=== PATIENT | female | born 1985 | race Caucasian/White ===

== ENCOUNTER 2016-09-22 15:45 | Observation (INO) ==
[2016-09-22] MEDS ORDERED: Nitroglycerin 0.4 MG TAB.SUBL SL ONE (15:57)
--- NOTE | 2016-09-22 16:01 | Emergency Department Note ---
Disposition Clinical Impression: Chest pain of uncertain etiology Disposition: Admitted As Inpatient Time of Disposition: 18:52 Chest Pain HPI - General Stated Complaint: CP Time Seen by Provider: 09/22/16 15:48 Vital Signs Reviewed: Yes Nursing Notes Reviewed: Yes - History of Present Illness HPI Narrative: Mrs. Hughes, a 31yo female, presents from home by POV with concerns of chest pain. Onset 3-4 days ago and intermittent. 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 Her symptoms were initially mild and flutter-like. Her symptomatically episodes are progressed and she now has chest tightness at the left lower sternal border radiation to her left neck and jaw worsened by light exertion at which time she has associated dyspnea. No nausea, diaphoresis, back pain, weakness, paresthesias. She is symptomatic at this time laying in bed. 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 Arnett at that time. Has been asymptomatic since delivery until her current symptoms. - Related Data Home Medications Medication Instructions Recorded Confirmed No Known Home Drugs 09/22/16 09/22/16 Allergies Allergy/AdvReac Type Severity Reaction Status Date / Time dextromethorphan Allergy Intermediate Hives Verified 09/22/16 16:05 [From Capmist DM] guaifenesin [From Capmist DM] Allergy Intermediate Hives Verified 09/22/16 16:05 pseudoephedrine Allergy Intermediate Hives Verified 09/22/16 16:05 [From Capmist DM] Amoxicillin Allergy Mild Hives Verified 09/22/16 16:05 vancomycin Allergy See Verified 09/22/16 16:05 Comments clindamycin AdvReac Mild Hives Verified 09/22/16 16:05 adhesive tape AdvReac Rash Verified 09/22/16 16:05 All systems ED: reviewed and negative except as stated. 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 HEENT: No facial asymmetry. Head is normocephalic and atraumatic. PERRLA. Trachea midline. Cardiovascular: Heart regular rate and rhythm without clicks, rubs, gallops, or murmurs. No JVD. PMI nondisplaced. No edema. Bilateral radial and posterior tibial pulses 2/4. No carotid bruit. Respiratory: Symmetric chest rise with good respiratory effort. Bilateral breath sounds are clear without wheezing, crackles, or rhonchi. Abdomen: Bowel sounds present normoactive x-4 quadrants. Abdomen is soft, nondistended, and nontender. No organomegaly noted. Musculoskeletal: Spontaneously moving all extremities. Neuro: Sensation to light touch intact. Psych: Patient's affect is appropriate for situation. Course Course Narrative: Patient's story is concerning for dysrhythmia versus ACS. EKG is concerning for left precordial leads showing slight ST depression; possible sub- endocardial ischemia. Anticipate admission for continued risk evaluation. Remainder of imaging and labs pending. Chemistry and hematology have returned unremarkable; specifically normal troponin and normal electrolytes. Chest x-ray unremarkable on my evaluation as well as radiology read. Chest pain resolved after single subungual nitroglycerin. She did have a headache at that time; this improved with Tylenol. She is asymptomatic on reassessment. Discussed this patient with the nurse practitioner the admitting hospitalist, Dr. Lira, she has no additional questions or concerns this point. She agrees for admission for continued workup and evaluation. I relayed this information to the patient and her mother as well as reevaluated her. She remains comfortable with no questions at this time. Chest X-Ray 09/22/16 15:57 IMPRESSION: No acute cardiopulmonary abnormality. D/ / Leonidas De Leon MD / Leonidas De Leon MD Interpreting Provider: Leonidas De Leon MD Vital Signs Temperature 98.4 F 09/22/16 15:50 Pulse Rate 92 09/22/16 15:50 Respiratory Rate 20 09/22/16 15:50 Blood Pressure 176/82 09/22/16 15:50 O2 Sat by Pulse Oximetry 98 09/22/16 15:50 Temperature 98.4 F 09/22/16 15:50 Pulse Rate 94 09/22/16 16:11 Respiratory Rate 18 09/22/16 17:41 Blood Pressure 126/85 09/22/16 17:41 O2 Sat by Pulse Oximetry 98 09/22/16 16:11 Oxygen Delivery Oxygen Delivery Room Air Chest Pain - Lab Data Result diagrams: 09/22/16 16:08 09/22/16 16:08 Lab Results 09/22/16 09/22/16 09/22/16 Range/Units 16:08 16:08 16:08 WBC 8.7 (4.3-11.1) K/mcL RBC 4.31 (3.82-4.97) M/mcL Hgb 12.9 (11.5-15.4) g/dL Hct 36.5 (35.3-44.9) % MCV 84.7 (83.0-100.0) fL MCH 29.9 (28.0-33.3) pg MCHC 35.3 (31.6-35.5) g/dL RDW 11.9 (11.5-14.5) % Plt Count 307 (140-400) K/mcL MPV 10.1 (9.4-12.4) fL Immature Gran % 0.3 (0-4) % Seg Neutrophils % 72.8 % Lymphocytes % 19.7 % Monocytes % 4.9 % Eosinophils % 1.6 % Basophils % 0.7 % Neutrophils # 6.3 (1.6-8.9) K/mcL Lymphocytes # 1.7 (0.6-4.6) K/mcL Monocytes # 0.4 (0.0-1.3) K/mcL Eosinophils # 0.1 (0.0-0.6) K/mcL Basophils # 0.1 (0.0-0.2) K/mcL PT 12.4 H (9.4-12.1) Seconds INR 1.1 APTT 29.9 (26.0-36.0) Seconds Sodium 140 (136-145) mEq/L Potassium 3.5 (3.5-4.5) mEq/L Chloride 110 H (98-109) mEq/L Carbon Dioxide 24 (19-29) mEq/L BUN 14 (7-20) mg/dL Creatinine 0.69 (0.57-1.11) mg/dL Est GFR ( Amer) > 60 (> 60) Est GFR (Non-Af Amer) > 60 (> 60) BUN/Creatinine Ratio 20 (6-26) Glucose 91 (70-99) mg/dL Calculated Osmolality 290 (280-300) Calcium 8.7 (8.6-10.8) mg/dL Troponin I (0-0.03) ng/mL 09/22/16 Range/Units 16:08 WBC (4.3-11.1) K/mcL RBC (3.82-4.97) M/mcL Hgb (11.5-15.4) g/dL Hct (35.3-44.9) % MCV (83.0-100.0) fL MCH (28.0-33.3) pg MCHC (31.6-35.5) g/dL RDW (11.5-14.5) % Plt Count (140-400) K/mcL MPV (9.4-12.4) fL Immature Gran % (0-4) % Seg Neutrophils % % Lymphocytes % % Monocytes % % Eosinophils % % Basophils % % Neutrophils # (1.6-8.9) K/mcL Lymphocytes # (0.6-4.6) K/mcL Monocytes # (0.0-1.3) K/mcL Eosinophils # (0.0-0.6) K/mcL Basophils # (0.0-0.2) K/mcL PT (9.4-12.1) Seconds INR APTT (26.0-36.0) Seconds Sodium (136-145) mEq/L Potassium (3.5-4.5) mEq/L Chloride (98-109) mEq/L Carbon Dioxide (19-29) mEq/L BUN (7-20) mg/dL Creatinine (0.57-1.11) mg/dL Est GFR ( Amer) (> 60) Est GFR (Non-Af Amer) (> 60) BUN/Creatinine Ratio (6-26) Glucose (70-99) mg/dL Calculated Osmolality (280-300) Calcium (8.6-10.8) mg/dL Troponin I 0.00 (0-0.03) ng/mL - EKG Data EKG attestation: Yes I reviewed and interpreted this EKG. EKG results narrative: EKG dated 09/22/16 at 15:52 interpreted as sinus rhythm with a rate of 78. Normal intervals VA 143, QRS 97, QT/QTc 387/421. Concerning for slight ST depression in V4 and V5. No previous EKG for comparison. Attestation Statement - Attestation Attestation: I examined this patient and my medical decision-making was reviewed with the VEGETABLE FARMING SUPERVISOR/PA/Advanced Practice Nurse/Resident Physician. I agree with the documented findings, disposition and treatment plan as described except to the extent set forth below. 3-4 days of palpitations, now with chest pain. ekg slightly abnormal. will need to admit for acs workup. stress test
[2016-09-22] MEDS ORDERED: Acetaminophen 325 MG TABLET PO ONE (16:09)
[2016-09-22 16:15] LABS: Basophils # 0.1 K/mcL (0.0-0.2); Basophils % 0.7 %; Eosinophils # 0.1 K/mcL (0.0-0.6); Eosinophils % 1.6 %; Hematocrit 36.5 % (35.3-44.9); Hemoglobin 12.9 g/dL (11.5-15.4); Immature Granulocytes % 0.3 % (0-4); Lymphocytes # 1.7 K/mcL (0.6-4.6); Lymphocytes % 19.7 %; Mean Corpuscular HGB Conc 35.3 g/dL (31.6-35.5); Mean Corpuscular Hemoglobin 29.9 pg (28.0-33.3); Mean Corpuscular Volume 84.7 fL (83.0-100.0); Mean Platelet Volume 10.1 fL (9.4-12.4); Monocytes # 0.4 K/mcL (0.0-1.3); Monocytes % 4.9 %; Neutrophils # 6.3 K/mcL (1.6-8.9); Platelet Count 307 K/mcL (140-400); Red Blood Count 4.31 M/mcL (3.82-4.97); Red Cell Distribution Width 11.9 % (11.5-14.5); Segmented Neutrophils % 72.8 %
[2016-09-22 16:27] LABS: INR 1.1; Prothrombin Time 12.4 Seconds (9.4-12.1)
[2016-09-22 16:29] LABS: BUN/Creatinine Ratio 20 (6-26); Blood Urea Nitrogen 14 mg/dL (7-20); Calcium 8.7 mg/dL (8.6-10.8); Carbon Dioxide 24 mEq/L (19-29); Chloride 110 mEq/L (98-109); Glucose 91 mg/dL (70-99); Osmolality,Calculated 290 (280-300); Potassium 3.5 mEq/L (3.5-4.5); Sodium 140 mEq/L (136-145); eGFR For African Americans > 60 (> 60); eGFR For Non-African Americans > 60 (> 60)
[2016-09-22 16:30] LABS: Activated Partial Thrombo Time 29.9 Seconds (26.0-36.0)
[2016-09-22] MEDS ORDERED: Naloxone 0.4 MG/ML INJ IVP PRN (18:47)
[2016-09-22] MEDS ORDERED: Acetaminophen 325 MG TABLET PO PRN (18:47)
--- NOTE | 2016-09-22 20:30 | Internal Med History&Physical ---
Date of Encounter: 09/22/16 Time of Encounter: 20:27 Assessment and Plan (1) Chest pain of uncertain etiology Current visit: Yes Status: Acute Patient reporting exertional chest pain and shortness of breath with palpitations over the last 2 days. EKG showed sinus rhythm with ST depressions in V4 and V5. Troponin normal at 0.00. Continuous cardiac nurse serial troponins echocardiogram and stress test in the morning. (2) Palpitations Current visit: Yes Status: Acute Patient reports feeling fluttering in clipping in her chest the last 3-4 days. 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 Arnett, she scheduled an appointment with him next week. EKG showed sinus rhythm without PVCs, ST depression in leads V4 and V5. Continuous cardiac nurse (3) EKG abnormality Current visit: Yes Status: Acute EKG showed ST depressions in v4 and V5. Continuous cardiac nurse, stress and echo in the morning. (4) DVT prophylaxis Current visit: Yes Status: Acute anti-embolic stockings lovenox 40mg SQ daily Internal Medicine - H&P: HPI Chief complaint: palpitations, chest pain Admitted From: Emergency Dept Plans for Post Hospital Care: Home History of present illness: Ms. 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 Patient reports that for the last 3-4 days she has been experiencing occasional palpitations, she describes as a fluttering in her chest, she has shortness of breath during these episodes. She reports that yesterday and today he episodes worsened to feel more like chest pain on the left side of her chest with one episode radiating up to her left shoulder left jaw and with numbness and tingling in her left arm. Today while she was walking she had another episode of chest pain, palpitations, shortness of breath, which prompted her to come to the emergency department. She denies headache, lightheadedness, cough, abdominal pain, nausea, vomiting, diarrhea. Her symptoms improved with nitroglycerin. Evaluation in the emergency department included EKG which showed ST depression in the V4 and V5 leads. Troponin was negative at 0.00, all other labs were normal. On exam, patient alert and oriented, in no acute distress. Heart had regular rate and rhythm, lungs are clear bilaterally to auscultation, no peripheral edema. Past Med Surg Social Fam HX - Past Medical History Medical history: migraine, other ( induced hypertension) Psychiatric history: no psych history - Past Surgical History Surgical History: , other (carpal tunnel, tubal ligation) - Social History Smoking Status: Never smoker Smokeless Tobacco Status: No Alcohol use: none Drug use: none - Family History Mother Adopted: Yes Family Member Ethnicity: Non- Living Status: Still Living Hx Family Cardiac Disorders: Yes (PVCs) Hx Family Respiratory Disorders: No Hx Family Cancer: No Hx Family GI Disorders: No Hx Family Endocrine Disorder: No Hx Family Neuromuscular Disorders: No Hx Family Neurologic Disorders: No Hx Family HEENT Disorders: No Hx Family Autoimmune Disorders: No Father Living Status: Still Living Hx Family Cardiac Disorders: Yes (HYPERTENSION) Hx Family Respiratory Disorders: No Hx Family Cancer: No Hx Family GI Disorders: No Hx Family Endocrine Disorder: No Hx Family Neuromuscular Disorders: No Hx Family Neurologic Disorders: No Hx Family HEENT Disorders: No Hx Family Autoimmune Disorders: No Grandmother Hx Family Cardiac Disorders: Yes (AFIB) Internal Medicine - H&P: Meds No Known Home Drugs 09/22/16 [History] Allergies dextromethorphan [From Capmist DM] Allergy (Intermediate, Verified 09/22/16 16: 05) Hives guaifenesin [From Capmist DM] Allergy (Intermediate, Verified 09/22/16 16:05) Hives pseudoephedrine [From Capmist DM] Allergy (Intermediate, Verified 09/22/16 16:05 ) Hives Amoxicillin Allergy (Mild, Verified 09/22/16 16:05) Hives vancomycin Allergy (Verified 09/22/16 16:05) See Comments clindamycin Adverse Reaction (Mild, Verified 09/22/16 16:05) Hives adhesive tape Adverse Reaction (Verified 09/22/16 16:05) Rash All Systems PM: A 10-system review of systems was performed and is negative for pertinent findings except as documented above in the HPI. - Constitutional Constitutional: no chills, no fever(s), no night sweats - EENT Eyes: no change in vision, no discharge, no pain, no photophobia Ears: no ear discharge, no ear pain, no tinnitus Nose, mouth and throat: no dysphagia, no nasal discharge, no neck pain, no sore throat - Cardiovascular Cardiovascular ROS IM: chest pain, dyspnea on exertion, palpitations, no diaphoresis, no dyspnea, no lightheadedness, no syncope - Respiratory Respiratory: dyspnea on exertion, no cough, no dyspnea, no wheezing, no excessive phlegm production - Gastrointestinal Gastrointestinal: no abdominal pain, no diarrhea, no hematemesis, no hematochezia, no melena, no nausea, no vomiting - Genitourinary Genitourinary: no change in urinary stream, no dysuria, no flank pain, no hematuria - Musculoskeletal Musculoskeletal ROS IM: no numbness, no tingling - Integumentary Integumentary IM: no rash, no unusual bruising - Neurological Neurological ROS: numbness (left arm), tingling, no confusion, no convulsions, no focal weakness, no tremor(s) - Hematologic/Lymphatic Hematologic/Lymphatic: no easy bruising - Constitutional Vitals: Temp Pulse Resp BP Pulse Ox 97.8 F 69 15 123/80 97 09/22/16 19:07 09/22/16 19:07 09/22/16 19:07 09/22/16 19:07 09/22/16 19:07 General appearance: Present: A&O X 3, pleasant, no acute distress - Head Head exam: Present: atraumatic, normocephalic - Eye Eye exam: Present: PERRL, conjuntiva pink, sclera anicteric Pupils: Present: PERRL - Neck Neck exam general surgery: Present: supple, trachea midline. Absent: lymphadenopathy - Respiratory Respiratory exam: Present: CTAB. Absent: accessory muscle use, rales, rhonchi, wheezes - Cardiovascular Cardiovascular exam: Present: RRR, +S1, +S2. Absent: diastolic murmur, gallop, rubs, systolic murmur - GI/Abdominal GI/Abdominal exam: Present: normal bowel sounds, soft, no peritoneal signs. Absent: distended, tenderness - Extremities Exam Extremities exam: Present: warm, radial pulses palpable and symetrical. Absent : calf tenderness, cyanotic, pedal edema - Neurological Exam Neurological exam: Present: CN II-XII intact, oriented X3, no focal deficits. Absent: pronater drift, facial droop, speech deficit - Skin Skin exam: Present: dry, intact Internal Med - H&P Results - Labs CBC & Chem 7: 09/22/16 16:08 09/22/16 16:08 Labs: All Lab Results (24 Hours) 09/22/16 09/22/16 09/22/16 Range/Units 16:08 16:08 16:08 WBC 8.7 (4.3-11.1) K/mcL RBC 4.31 (3.82-4.97) M/mcL Hgb 12.9 (11.5-15.4) g/dL Hct 36.5 (35.3-44.9) % MCV 84.7 (83.0-100.0) fL MCH 29.9 (28.0-33.3) pg MCHC 35.3 (31.6-35.5) g/dL RDW 11.9 (11.5-14.5) % Plt Count 307 (140-400) K/mcL MPV 10.1 (9.4-12.4) fL Immature Gran % 0.3 (0-4) % Seg Neutrophils % 72.8 % Lymphocytes % 19.7 % Monocytes % 4.9 % Eosinophils % 1.6 % Basophils % 0.7 % Neutrophils # 6.3 (1.6-8.9) K/mcL Lymphocytes # 1.7 (0.6-4.6) K/mcL Monocytes # 0.4 (0.0-1.3) K/mcL Eosinophils # 0.1 (0.0-0.6) K/mcL Basophils # 0.1 (0.0-0.2) K/mcL PT 12.4 H (9.4-12.1) Seconds INR 1.1 APTT 29.9 (26.0-36.0) Seconds Sodium 140 (136-145) mEq/L Potassium 3.5 (3.5-4.5) mEq/L Chloride 110 H (98-109) mEq/L Carbon Dioxide 24 (19-29) mEq/L BUN 14 (7-20) mg/dL Creatinine 0.69 (0.57-1.11) mg/dL Est GFR ( Amer) > 60 (> 60) Est GFR (Non-Af Amer) > 60 (> 60) BUN/Creatinine Ratio 20 (6-26) Glucose 91 (70-99) mg/dL Calculated Osmolality 290 (280-300) Calcium 8.7 (8.6-10.8) mg/dL Troponin I (0-0.03) ng/mL 09/22/16 Range/Units 16:08 WBC (4.3-11.1) K/mcL RBC (3.82-4.97) M/mcL Hgb (11.5-15.4) g/dL Hct (35.3-44.9) % MCV (83.0-100.0) fL MCH (28.0-33.3) pg MCHC (31.6-35.5) g/dL RDW (11.5-14.5) % Plt Count (140-400) K/mcL MPV (9.4-12.4) fL Immature Gran % (0-4) % Seg Neutrophils % % Lymphocytes % % Monocytes % % Eosinophils % % Basophils % % Neutrophils # (1.6-8.9) K/mcL Lymphocytes # (0.6-4.6) K/mcL Monocytes # (0.0-1.3) K/mcL Eosinophils # (0.0-0.6) K/mcL Basophils # (0.0-0.2) K/mcL PT (9.4-12.1) Seconds INR APTT (26.0-36.0) Seconds Sodium (136-145) mEq/L Potassium (3.5-4.5) mEq/L Chloride (98-109) mEq/L Carbon Dioxide (19-29) mEq/L BUN (7-20) mg/dL Creatinine (0.57-1.11) mg/dL Est GFR ( Amer) (> 60) Est GFR (Non-Af Amer) (> 60) BUN/Creatinine Ratio (6-26) Glucose (70-99) mg/dL Calculated Osmolality (280-300) Calcium (8.6-10.8) mg/dL Troponin I 0.00 (0-0.03) ng/mL - Diagnostic Studies Chest x-ray Additional comments: Chest X-Ray 09/22/16 15:57 IMPRESSION: No acute cardiopulmonary abnormality. D/ / Leonidas De Leon MD / Leonidas De Leon MD Interpreting Provider: Leonidas De Leon MD
--- NOTE | 2016-09-22 22:33 | Event Note ---
Date of Encounter: 09/22/16 Time of Encounter: 22:33 Patient CNN examined with nurse practitioner. Agree with assessment and plan.
[2016-09-23 05:04] LABS: Basophils % 0.6 %; Eosinophils # 0.2 K/mcL (0.0-0.6); Eosinophils % 2.3 %; Hematocrit 36.4 % (35.3-44.9); Hemoglobin 12.6 g/dL (11.5-15.4); Immature Granulocytes % 0.4 % (0-4); Immature Platelets 2.9 % (1.1-6.1); Lymphocytes # 2.3 K/mcL (0.6-4.6); Lymphocytes % 31.2 %; Mean Corpuscular HGB Conc 34.6 g/dL (31.6-35.5); Mean Corpuscular Hemoglobin 29.4 pg (28.0-33.3); Mean Platelet Volume 10.1 fL (9.4-12.4); Monocytes # 0.4 K/mcL (0.0-1.3); Monocytes % 5.8 %; Neutrophils # 4.3 K/mcL (1.6-8.9); Platelet Count 292 K/mcL (140-400); Red Blood Count 4.28 M/mcL (3.82-4.97); Segmented Neutrophils % 59.7 %
[2016-09-23 05:28] LABS: BUN/Creatinine Ratio 16 (6-26); Blood Urea Nitrogen 11 mg/dL (7-20); Calcium 8.4 mg/dL (8.6-10.8); Carbon Dioxide 23 mEq/L (19-29); Chloride 110 mEq/L (98-109); Glucose 88 mg/dL (70-99); Osmolality,Calculated 287 (280-300); Potassium 3.4 mEq/L (3.5-4.5); Sodium 139 mEq/L (136-145); eGFR For African Americans > 60 (> 60); eGFR For Non-African Americans > 60 (> 60)
[2016-09-23 05:45] LABS: Thyroid Stimulating Hormone 1.001 mcIU/mL (0.350-4.840)
[2016-09-23 11:29] VITALS: BP 119/82
--- NOTE | 2016-09-23 13:41 | Exercise Stress Test ---
Exercise Stress Name: Mary Anne Hughes Date of Study: 09/23/2016 Date: 1985 Ht: 63.0in Medical Record#: [id number] Age: 31 Wt: 195.0lb Gender: Female BSA: 1.91 Order #: [id number] Location: [facility] Room #: Reading Physician: Enrique Alvares DO Technologist: Liat Hernandez Supervising Provider: Cookie Landers CNP Primary Physician: Souleymane Edwards DO Ordering Physician: Yvette John CNP Indication: Chest Pain, Palpitations Impressions: Stress ECG is negative for ischemia. Findings: Normal sinus rhythm at rest. No baseline arrhythmias were noted. Stress ECG is negative for ischemia. No arrhythmias noted during exercise or recovery. The patient demonstrated a normal blood pressure response. The exercise capacity was good. No chest pain during stress procedure. History: Stress Test Summary: Stress Test Type: Treadmill Protocol: Delvin Baseline Information: Maximum Predicted HR: 189 85% MPHR: 161 Blood Pressure: 124 / 68 Stress Information: Total Exercise Time: 8 30 Test Terminated Due To: Fatigue Maximum Blood Pressure: 178 / 64 Maximum Heart Rate: 184 Percent Maximum Heart Rate Achieved: 97 Double Product: 30049 METS Reached: 10.1 Symptoms: Fatigue Updated by Enrique Alvares DO, MIGDALIA LEIJA FASNC on 09/23/2016 12:30:03 PM electronically signed on 09/23/2016 12:30:42 PM with status of Final
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
--- NOTE | 2016-09-24 12:31 | Electrocardiograph Report ---
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
== END 2016-09-23 16:05 | disposition home or self-care (01) ==
LOC: EMEROO 15:45 → 3BNU 15:45
PROVIDERS: ADMIT Nurse Practitioner Acute Care; ATTEND Nurse Practitioner Family